=== PATIENT | female | born 1995 | race Caucasian/White ===

== ENCOUNTER 2016-03-27 18:32 | Emergency (ER) | payer OTHER ==
[2016-03-27] MEDS ORDERED: ONDANSETRON ODT 4 MG TABLET TL STA (20:15)
[2016-03-27] MEDS ORDERED: ONDANSETRON ODT 4 MG TABLET ONE (20:22)
== END 2016-03-27 20:59 | disposition home or self-care (01) ==
DX: S06.0X0A Concussion without loss of consciousness, initial encounter (principal); W50.0XXA Accidental hit or strike by another person, initial encounter; Y93.67 Activity, basketball; Y92.39 Other specified sports and athletic area as the place of occurrence of the external cause; Y99.8 Other external cause status; R11.2 Nausea with vomiting, unspecified
CPT/HCPCS: 70450; 99282; 99284; Q0162

== ENCOUNTER 2016-09-28 11:17 | Emergency (ER) | payer OTHER ==
[2016-09-28 14:16] LABS: BILIRUBIN,URINE NEGATIVE (NEGATIVE)
[2016-09-28 14:18] LABS: UA CHARGE (STRIP ONLY) YES; UR CULTURE IF IND NOT INDICATED
[2016-09-28 14:38] LABS: BASOPHILS % (AUTO) 0.4 %; EOSINOPHILS # (AUTO) 0.1 10^3/uL (0.0-0.7); EOSINOPHILS % (AUTO) 0.9 %; HCT - HEMATOCRIT 35.6 % (37.0-47.0); HGB - HEMOGLOBIN 12.4 g/dL (12.0-16.0); LYMPHOCYTES # (AUTO) 2.7 10^3/uL (1.5-3.5); LYMPHOCYTES % (AUTO) 25.2 %; MEAN CORPUSCULAR HEMOGLOBIN 29.9 pg (27.0-31.0); MEAN CORPUSCULAR HGB CONC 34.9 g/dL (32.0-36.0); MEAN CORPUSCULAR VOLUME 85.7 fL (81.0-99.0); MEAN PLATELET VOLUME 6.8 fL (7.9-10.8); MONOCYTES # (AUTO) 0.4 10^3/uL (0.0-1.0); MONOCYTES % (AUTO) 3.9 %; NEUTROPHILS # (AUTO) 7.4 10^3/uL (1.5-6.6); NEUTROPHILS % (AUTO) 69.6 %; RED BLOOD COUNT 4.15 10^6/uL (4.20-5.40); RED CELL DISTRIBUTION WIDTH 13.1 % (12.0-15.0); UNCORRECTED WHITE BLOOD COUNT 10.6 x10^3/uL; WHITE BLOOD COUNT 10.6 x10^3/uL (4.8-10.8)
--- NOTE | 2016-09-28 15:21 | ED Physician Documentation ---
PD HPI FEMALE - Stated complaint Stated Complaint: FEMALE - Chief complaint Chief Complaint: Abd Pain - History obtained from History obtained from: Patient - History of Present Illness Timing - onset: How many minutes ago (30) Timing - details: Now resolved Associated symptoms: Pelvic pain (cramping) Contributing factors: [employer] History: G (1), P (0) Similar symptoms before: Has not had sx before - Additional information Additional information: The patient is a 21-year-old female, currently at 14 weeks gestation, who presents with a brief episode of pelvic cramping that occurred about 30 minutes prior to arrival. She noticed a small dark sac that past, and is concerned that she had a miscarriage. She denies any vaginal bleeding. She denies nausea , vomiting, fever, or dysuria. She has had no recurrent cramping since the episode occurred. Review of Systems Constitutional: denies: Fever Nose: denies: Congestion Throat: denies: Sore throat Respiratory: denies: Dyspnea, Cough GI: reports: Abdominal Pain (Brief pelvic cramping.). denies: Nausea, Vomiting : denies: Dysuria, Vaginal bleeding Skin: denies: Rash Musculoskeletal: denies: Back pain Neurologic: denies: Headache PD PAST MEDICAL HISTORY - Past Medical History Cardiovascular: None Respiratory: None Neuro: None Endocrine/Autoimmune: None Psych: Depression - Past Surgical History Past Surgical History: Yes HEENT: Other - Present Medications Home Medications: Ambulatory Orders Medication Instructions Recorded Confirmed Pnv95/Ferrous Fumarate/FA 1 tab PO DAILY 09/28/16 09/28/16 [ Tablet] - Allergies Allergies/Adverse Reactions: Allergies Allergy/AdvReac Type Severity Reaction Status Date / Time diphenhydramine HCl * Allergy Unknown Verified 03/13/15 14:37 [From Benadryl] - Social History Does the pt smoke?: No Smoking Status: Never smoker Does the pt drink ETOH?: No Does the pt have substance abuse?: No - Immunizations Immunizations are current?: Yes PD ED PE NORMAL - Vitals Vital signs reviewed: Yes (normal) - General General: Alert and oriented X 3, Well developed/nourished - HEENT HEENT: Atraumatic, Pharynx benign - Neck Neck: No adenopathy, No JVD - Cardiac Cardiac: RRR, No murmur - Respiratory Respiratory: No respiratory distress, Clear bilaterally - Abdomen Abdomen: Normal bowel sounds, Soft, Non tender, Other (Gravid uterus.) - Female Female : Nutrition Teacher present - Back Back: No CVA TTP - Derm Derm: No rash - Extremities Extremities: No edema, No calf tenderness / cord - Neuro Neuro: Alert and oriented X 3, No motor deficit, Normal speech PD ED PE EXPANDED - Female Female : Normal external, Enlarged uterus (consistent with dates.), Cultures sent, Nutrition Teacher present. No: Vaginal Bleeding, Dilated cervix, Tissue present Results - Vitals Vitals: Oxygen O2 Source Room air - Labs Labs: Laboratory Tests 09/28/16 09/28/16 09/28/16 14:00 14:00 14:30 WBC 10.6 RBC 4.15 L Hgb 12.4 Hct 35.6 L MCV 85.7 MCH 29.9 MCHC 34.9 RDW 13.1 Plt Count 252 MPV 6.8 L Neut # 7.4 H Lymph # 2.7 [place] # 0.4 Eos # 0.1 Baso # 0.0 Absolute Nucleated RBC 0.00 Nucleated RBCs 0.0 Urine Color YELLOW Urine Clarity CLEAR Urine pH 7.0 Ur Specific [place] 1.010 Urine Protein NEGATIVE Urine Glucose (UA) NEGATIVE Urine Ketones 15 H Urine Occult Blood NEGATIVE Urine Nitrite NEGATIVE Urine Bilirubin NEGATIVE Urine Urobilinogen 0.2 (NORMAL) Ur Leukocyte Esterase NEGATIVE Ur Microscopic Review NOT INDICATED Urine Culture Comments NOT INDICATED C.trachomatis RNA (TMA) NOT DETECTED Chlamydia/GC Comment SEE NOTE N.gonorrhoeae RNA (TMA) NOT DETECTED Procedures - Bedside sono Bedside sono by EMP: Bedside ultrasound performed by az, reveals single viable intrauterine with heart rate of 156. PD MEDICAL DECISION MAKING - ED course Complexity details: reviewed results, considered differential, d/w patient ED course: The patient's presentation is significant for brief transient pelvic cramping during early second trimester . Bedside ultrasound performed by the emergency physician reveals a single viable intrauterine with normal heart rate. There is no vaginal bleeding, and no ongoing pelvic cramping to suggest miscarriage in progress. The patient's blood type is Rh+ by her history. I discussed with her and her female certified nurses aide's the results of her workup, importance of outpatient follow-up with her silk opener, as well as potentially worrisome signs or symptoms that should prompt reevaluation is needed emergency department. Departure - Departure Disposition: 01 Home, Self Care Clinical Impression: Pelvic cramping Qualifiers: Weeks of gestation: 14 weeks Qualified Code(s): Z3A.14 - 14 weeks gestation of Condition: Stable Instructions: ED Pelvic Pain Preg UKO 2 or 3 Tri Follow-Up: KETAN BRANCH [Physician No Access] - Comments: Drink plenty of fluids. You can use Tylenol if needed for discomfort. Follow-up with your silk opener as planned. Return to the emergency department if you develop increasing pelvic cramping pain, vaginal bleeding, or otherwise worsening symptoms. Discharge Date/Time: 09/28/16 15:23
[2016-09-28 15:23] VITALS: BP 117/61
== END 2016-09-28 15:23 | disposition home or self-care (01) ==
LOC: ED 11:17
DX: O26.892 Other specified pregnancy related conditions, second trimester (principal); R10.2 Pelvic and perineal pain; Z3A.14 14 weeks gestation of pregnancy
CPT/HCPCS: 36415; 81001; 81003; 85025; 87086; 87491; 87591; 99283

== ENCOUNTER 2017-08-17 06:33 | Emergency (ER) | payer OTHER ==
[2017-08-17 06:42] VITALS: BP 114/70
[2017-08-17] MEDS ORDERED: DEXAMETHASONE 10 MG/ML VIAL PO STA (07:07)
[2017-08-17] MEDS ORDERED: hydrOXYzine PAMOATE 25 MG CAPSULE PO STA (07:07)
--- NOTE | 2017-08-17 07:10 | ED Physician Documentation ---
PD HPI SKIN - Stated complaint Stated Complaint: ALLERGIC REACTION - Chief complaint Chief Complaint: Wound - History obtained from History obtained from: Patient - History of Present Illness Timing - onset: How many days ago (3) Timing - duration: Days (3) Timing - details: Gradual onset, Still present Location: [place] Quality / character: Itchy, Discolored, Raised Improved by: No: Steroid cream Associated symptoms: No: Fever, Myalgias, Joint pain, Headache, Facial swelling , Dyspnea, Abd pain, N/V/D, Urinary sx Contributing factors: Unknown Similar symptoms before: Diagnosis (non-specific dermatitis) Recently seen: Not recently seen - Additional information Additional information: 22-year-old female who is breast-feeding has developed an acute erythematous rash over her feet and forearms that has spread to her legs and trunk. She has had something similar to this 2 years ago that spontaneously resolved and lasted almost 3 days. She has come to the day #3 and this rash is worse. She is on able to identify a specific trigger for this. She has tried some topical hydrocortisone without improvement. She previously had some improvement with use of hydroxyzine. Review of Systems Constitutional: denies: Fever, Chills, Myalgias Eyes: denies: Decreased vision Ears: denies: Ear pain Nose: reports: Rhinorrhea / runny nose, Congestion Throat: denies: Sore throat Cardiac: denies: Chest pain / pressure Respiratory: denies: Dyspnea, Cough GI: denies: Abdominal Pain, Nausea, Vomiting : denies: Dysuria, Frequency Skin: reports: Rash Musculoskeletal: denies: Neck pain, Back pain, Extremity pain PD PAST MEDICAL HISTORY - Past Medical History Past Medical History: Yes Cardiovascular: None Respiratory: None Endocrine/Autoimmune: None Psych: Depression - Past Surgical History Past Surgical History: Yes HEENT: Tonsil/Adenoidectomy, Other - Present Medications Home Medications: Ambulatory Orders Medication Instructions Recorded Confirmed Pnv95/Ferrous Fumarate/FA 1 tab PO DAILY 09/28/16 09/28/16 [ Tablet] Hydroxyzine Pamoate [Vistaril] 50 mg PO Q6HR PRN #30 capsule 08/17/17 - Allergies Allergies/Adverse Reactions: Allergies Allergy/AdvReac Type Severity Reaction Status Date / Time diphenhydramine HCl * Allergy Unknown Verified 08/17/17 06:42 [From Benadryl] - Social History Does the pt smoke?: No Smoking Status: Never smoker Does the pt drink ETOH?: No Does the pt have substance abuse?: No - Immunizations Immunizations are current?: Yes - POLST Patient has POLST: No PD ED PE NORMAL - Vitals Vital signs reviewed: Yes (normal ) - General General: Alert and oriented X 3, No acute distress, Well developed/nourished, Other (itching continuously ) - HEENT HEENT: Atraumatic, PERRL, EOMI, Ears normal, Moist mucous membranes, Pharynx benign, Dentition benign - Neck Neck: Supple, no meningeal sign, No bony TTP - Cardiac Cardiac: RRR, No murmur - Respiratory Respiratory: No respiratory distress, Clear bilaterally - Abdomen Abdomen: Soft, Non tender - Back Back: No CVA TTP, No spinal TTP - Derm Derm: Normal color, Warm and dry, Other (There is an erythematous plaque like eruption over the feet and hands and forearm and calves and this is less so over the torso. ) - Extremities Extremities: No deformity, No edema - Neuro Neuro: No motor deficit, No sensory deficit Eye Opening: Spontaneous Motor: Obeys Commands Verbal: Oriented GCS Score: 15 - Psych Psych: Normal mood Results - Vitals Vitals: Vital Signs - 24 hr 08/17/17 06:39 Temperature 36 C L Heart Rate 95 Respiratory 16 Rate Blood Pressure 114/70 O2 Saturation 98 Oxygen O2 Source Room air PD MEDICAL DECISION MAKING - ED course Complexity details: reviewed results, re-evaluated patient, considered differential, d/w patient ED course: 22 y/o female with a non-specific rash is administered decadron 10mg PO and vistaril 50mg PO. - Sepsis Event Vital Signs: Vital Signs - 24 hr 08/17/17 06:39 Temperature 36 C L Heart Rate 95 Respiratory 16 Rate Blood Pressure 114/70 O2 Saturation 98 Oxygen O2 Source Room air Departure - Departure Disposition: 01 Home, Self Care Clinical Impression: Rash due to allergy Condition: Stable Instructions: ED Dermatitis Non Specific Rash Follow-Up: Dar Childress ARNP [Primary Care Provider] - Prescriptions: Hydroxyzine Pamoate [Vistaril] 50 mg PO Q6HR PRN #30 capsule PRN Reason: Itching
== END 2017-08-17 07:34 | disposition home or self-care (01) ==
LOC: ED 06:33
DX: T78.40XA Allergy, unspecified, initial encounter (principal); R21 Rash and other nonspecific skin eruption
CPT/HCPCS: 99282; 99283; A9270

== ENCOUNTER 2018-01-01 10:18 | Emergency (ER) | payer OTHER ==
[2018-01-01] MEDS ORDERED: METOCLOPRAMIDE 10 MG/2 ML VIAL IVP STA (10:45)
[2018-01-01] MEDS ORDERED: SODIUM CHLORIDE 0.9% 1,000 ML IV ONE (10:45)
[2018-01-01] MEDS ORDERED: ACETAMINOPHEN 1,000 MG/100 ML 100 ML IV STA (10:45)
--- NOTE | 2018-01-01 12:10 | ED Physician Documentation ---
History of Present Illness - Stated complaint Stated Complaint: MIGRAINE - Chief complaint Chief Complaint: General - History obtained from History obtained from: Patient - Additonal information Additional information: 22-year-old female presents the emergency department for evaluation of a headache for the past 2 days. The patient describes a throbbing throughout her entire head.The patient denies radiation into her neck, neck stiffness, vision changes, motor or sensory changes or any acute focal neurologic changes. The patient also has been feeling generally unwell with body aches, chills and feeling feverish. No reports of nasal congestion, sore throat, abdominal pain, chest pain or dysuria or diarrhea. Symptoms are described as moderate. No improvement with [id number] therapy. No other associated symptoms. Review of Systems Constitutional: reports: Fever, Chills, Myalgias, Fatigue Eyes: denies: Discharge Ears: denies: Ear pain Nose: denies: Rhinorrhea / runny nose, Congestion Throat: denies: Sore throat Cardiac: denies: Chest pain / pressure Respiratory: denies: Dyspnea, Cough GI: reports: Nausea. denies: Vomiting : denies: Dysuria Skin: denies: Rash Musculoskeletal: denies: Neck pain Neurologic: reports: Headache. denies: Confused Immunocompromised: denies: Chemotherapy PD PAST MEDICAL HISTORY - Past Medical History Cardiovascular: None Respiratory: None Endocrine/Autoimmune: None Psych: Depression - Past Surgical History Past Surgical History: Yes HEENT: Tonsil/Adenoidectomy, Other - Present Medications Home Medications: Ambulatory Orders Medication Instructions Recorded Confirmed Pnv95/Ferrous Fumarate/FA 1 tab PO DAILY 09/28/16 01/01/18 [ Tablet] - Allergies Allergies/Adverse Reactions: Allergies Allergy/AdvReac Type Severity Reaction Status Date / Time diphenhydramine HCl * Allergy Unknown Verified 08/17/17 06:42 [From Benadryl] - Social History Does the pt smoke?: No Smoking Status: Never smoker Does the pt drink ETOH?: No Does the pt have substance abuse?: No - Immunizations Immunizations are current?: Yes - POLST Patient has POLST: No PD ED PE NORMAL - General General: Alert and oriented X 3, No acute distress - HEENT HEENT: Atraumatic, PERRL, EOMI, Ears normal, Moist mucous membranes, Pharynx benign - Neck Neck: Supple, no meningeal sign - Cardiac Cardiac: RRR, Strong equal pulses - Respiratory Respiratory: No respiratory distress, Clear bilaterally - Abdomen Abdomen: Soft, Non tender, Non distended - Back Back: No CVA TTP, No spinal TTP - Derm Derm: Normal color - Extremities Extremities: No deformity, No edema - Neuro Neuro: Alert and oriented X 3, tapper shank 2-12 intact, Normal speech - Psych Psych: Normal mood Results - Vitals Vitals: Vital Signs - 24 hr 01/01/18 01/01/18 01/01/18 10:35 13:04 14:19 Temperature 38.6 C H 37.0 C 36.9 C Heart Rate 111 H 95 92 Respiratory 18 16 16 Rate Blood Pressure 96/61 102/65 96/56 L O2 Saturation 100 98 100 Oxygen O2 Source Room air - Labs Labs: Laboratory Tests 01/01/18 01/01/18 01/01/18 11:25 12:20 12:20 Urine Color YELLOW Urine Clarity CLEAR Urine pH 6.0 Ur Specific [place] 1.025 1.025 Urine Protein NEGATIVE Urine Glucose (UA) NEGATIVE Urine Ketones 15 H Urine Occult Blood NEGATIVE Urine Nitrite NEGATIVE Urine Bilirubin NEGATIVE Urine Urobilinogen 0.2 (NORMAL) Ur Leukocyte Esterase NEGATIVE Ur Microscopic Review NOT INDICATED Urine Culture Comments NOT INDICATED Urine HCG, Qual NEGATIVE Influenza A (Rapid) Negative Influenza B (Rapid) Negative - Rads (name of study) CT head Radiology: Final report received, See rad report PD MEDICAL DECISION MAKING - ED course ED course: The patient's symptoms seem to represent a viral process which is most likely causing her headache today. On physical exam there is no findings to suggest bacterial meningitis, sepisis, acute otitis media, peritonsillar abscess, strep pharyngitis, pneumonia or bacterial etiology that would necessitate further workup in the emergency department or antibiotic therapy. On reevaluation the patient is resting comfortably and her symptoms have completely resolved. The patient is requesting discharge home. The patient appears appropriate for outpatient management. I discussed warning signs and recommended returning to the emergency department immediately for any worsening or any concerns. Departure - Departure Disposition: 01 Home, Self Care Clinical Impression: Viral syndrome Headache Qualifiers: Headache type: unspecified Headache chronicity pattern: unspecified pattern Intractability: not intractable Qualified Code(s): R51 - Headache Condition: Good Instructions: ED Cephalgia Unspecified, ED Viral Syndrome Follow-Up: Dar Childress ARNP [Primary Care Provider] - Within 1 week Comments: Please return to the emergency department immediately for worsening symptoms or any concerns
[2018-01-01 12:50] LABS: BILIRUBIN,URINE NEGATIVE (NEGATIVE); GLUCOSE, URINE (UA) NEGATIVE (NEGATIVE); KETONES,URINE (UA) 15 mg/dL (NEGATIVE); LEUKOCYTE ESTERASE, URINE NEGATIVE (NEGATIVE); NITRITE,URINE NEGATIVE (NEGATIVE); OCCULT BLOOD,URINE NEGATIVE (NEGATIVE); PROTEIN,URINE NEGATIVE (NEGATIVE); UROBILINOGEN,URINE 0.2 (NORMAL) E.U./dL (NORMAL)
[2018-01-01 12:53] LABS: CLARITY,URINE CLEAR (CLEAR)
[2018-01-01 12:54] LABS: HCG UR QUAL NEGATIVE
[2018-01-01] MEDS ORDERED: KETOROLAC 60 MG/2 ML VIAL IVP STA (12:58)
--- NOTE | 2018-01-01 14:11 | CT Report ---
Reason: NETTLES Procedure Date: 01/01/2018 Accession Number: [id number] / [id number] Procedure: CT - Head W/O CPT Code: FULL RESULT: EXAM: CT HEAD EXAM DATE: 01/01/2018 11:55 AM. CLINICAL HISTORY: Headache COMPARISON: Head CT 03/27/2016, 08/24/2015. TECHNIQUE: Multiaxial CT images were obtained from the foramen magnum to the vertex. Reformats: Sagittal and coronal. IV contrast: None. In accordance with CT protocol optimization, one or more of the following dose reduction techniques were utilized for this exam: automated exposure control, adjustment of mA and/or KV based on patient size, or use of iterative reconstructive technique. FINDINGS: Parenchyma: No intraparenchymal hemorrhage. No evidence of mass, midline shift, or CT findings of infarction. Pimentel-white differentiation is distinct. Extraaxial Spaces: Normal for age. No subdural or epidural collections identified. Ventricles: Normal in size and position. Sinuses and Orbits: Imaged paranasal sinuses, orbits, and mastoids show no significant abnormality. Bones: No evidence of fracture or calvarial defect. Other: None. IMPRESSION: No acute intracranial process on noncontrast CT RAD[facility]
[2018-01-01 14:21] VITALS: BP 96/56
== END 2018-01-01 14:31 | disposition home or self-care (01) ==
LOC: ED 10:18
DX: B34.9 Viral infection, unspecified (principal); R51 Headache
CPT/HCPCS: 70450; 81003; 81025; 87275; 87276; 96361; 96374; 96375; 99283; 99284; J0131; J2765; 81001; 87086

== ENCOUNTER 2019-04-02 04:02 | Emergency (ER) | payer OTHER ==
--- NOTE | 2019-04-02 04:31 | ED Physician Documentation ---
History of Present Illness - Stated complaint Stated Complaint: VOMITING/DIZZY - Chief complaint Chief Complaint: Abd Pain - History obtained from History obtained from: Patient (the patient is a very pleasant 23 YO USN AD F who p/w a cc of vomiting several times and now feeling lightheaded without dizzyness, denies fevers, syncope, abd pain, dysuria, hematemesis or any other complaints.) Review of Systems Constitutional: reports: Reviewed and negative Eyes: reports: Reviewed and negative Ears: reports: Reviewed and negative Nose: reports: Reviewed and negative Throat: reports: Reviewed and negative Cardiac: reports: Reviewed and negative Respiratory: reports: Reviewed and negative GI: reports: Vomiting : reports: Reviewed and negative Skin: reports: Reviewed and negative Musculoskeletal: reports: Reviewed and negative Neurologic: reports: Reviewed and negative Psychiatric: reports: Reviewed and negative Endocrine: reports: Reviewed and negative Immunocompromised: reports: Reviewed and negative PD PAST MEDICAL HISTORY - Past Medical History Cardiovascular: None Respiratory: None Endocrine/Autoimmune: None Psych: Depression - Past Surgical History Past Surgical History: Yes HEENT: Tonsil/Adenoidectomy, Other - Present Medications Home Medications: Ambulatory Orders Medication Instructions Recorded Confirmed Ondansetron Odt [Zofran] 4 mg TL Q6H PRN #10 tablet 04/02/19 Sertraline HCl 100 mg PO DAILY 04/02/19 04/02/19 - Allergies Allergies/Adverse Reactions: Allergies Allergy/AdvReac Type Severity Reaction Status Date / Time diphenhydramine HCl * Allergy Unknown Verified 04/02/19 04:14 [From Benadryl] - Social History Does the pt smoke?: No Smoking Status: Never smoker Does the pt drink ETOH?: No Does the pt have substance abuse?: No - Immunizations Immunizations are current?: Yes - POLST Patient has POLST: No PD ED PE NORMAL - Vitals Vital signs reviewed: Yes - General General: Alert and oriented X 3, No acute distress, Well developed/nourished - HEENT HEENT: Atraumatic, PERRL, EOMI, Ears normal, Moist mucous membranes - Neck Neck: Supple, no meningeal sign - Cardiac Cardiac: RRR, No murmur, Strong equal pulses - Respiratory Respiratory: No respiratory distress, Clear bilaterally - Abdomen Abdomen: Normal bowel sounds, Soft, Non tender, Non distended, No organomegaly - Derm Derm: Warm and dry - Extremities Extremities: No deformity - Neuro Neuro: Alert and oriented X 3, make up arranger 2-12 intact, No motor deficit, No sensory deficit, Normal speech - Psych Psych: Normal mood, Normal affect Results - Vitals Vitals: Vital Signs - 24 hr 04/02/19 04/02/19 04:05 05:15 Temperature 36.7 C Heart Rate 105 H 87 Respiratory 18 16 Rate Blood Pressure 115/73 100/87 H O2 Saturation 100 100 Oxygen O2 Source Room air - Labs Labs: Laboratory Tests 04/02/19 04/02/19 04/02/19 04:25 04:25 04:30 WBC 10.2 RBC 5.08 Hgb 15.4 Hct 45.4 MCV 89.4 MCH 30.3 MCHC 33.9 RDW 11.7 L Plt Count 260 MPV 9.0 Neut # (Auto) 8.8 H Lymph # (Auto) 0.9 L [place] # (Auto) 0.5 Eos # (Auto) 0.1 Baso # (Auto) 0.0 Absolute Nucleated RBC 0.00 Nucleated RBC % 0.0 Sodium Potassium Chloride Carbon Dioxide Anion Gap BUN Creatinine Estimated GFR (MDRD) Glucose Calcium Total Bilirubin AST ALT Alkaline Phosphatase Total Creatine Kinase Total Protein Albumin Globulin Albumin/Globulin Ratio Lipase Urine Color YELLOW Urine Clarity CLEAR Urine pH 6.5 Ur Specific [place] 1.020 1.020 Urine Protein NEGATIVE Urine Glucose (UA) NEGATIVE Urine Ketones TRACE Urine Occult Blood NEGATIVE Urine Nitrite NEGATIVE Urine Bilirubin NEGATIVE Urine Urobilinogen 0.2 (NORMAL) Ur Leukocyte Esterase SMALL H Urine RBC None Seen Urine WBC 4-5 Ur Squamous Epith Cells MANY Squamous H Urine Bacteria Few Urine Mucus Moderate Strands Ur Microscopic Review INDICATED Urine Culture Comments NOT INDICATED Urine HCG, Qual NEGATIVE 04/02/19 04:30 WBC RBC Hgb Hct MCV MCH MCHC RDW Plt Count MPV Neut # (Auto) Lymph # (Auto) [place] # (Auto) Eos # (Auto) Baso # (Auto) Absolute Nucleated RBC Nucleated RBC % Sodium 135 Potassium 3.7 Chloride 103 Carbon Dioxide 21 Anion Gap 11.0 BUN 14 Creatinine 0.7 Estimated GFR (MDRD) 104 Glucose 99 Calcium 8.7 Total Bilirubin 1.8 H AST 18 ALT 12 Alkaline Phosphatase 55 Total Creatine Kinase 78 Total Protein 7.5 Albumin 4.2 Globulin 3.3 Albumin/Globulin Ratio 1.3 Lipase 37 Urine Color Urine Clarity Urine pH Ur Specific [place] Urine Protein Urine Glucose (UA) Urine Ketones Urine Occult Blood Urine Nitrite Urine Bilirubin Urine Urobilinogen Ur Leukocyte Esterase Urine RBC Urine WBC Ur Squamous Epith Cells Urine Bacteria Urine Mucus Ur Microscopic Review Urine Culture Comments Urine HCG, Qual PD MEDICAL DECISION MAKING - ED course Complexity details: re-evaluated patient (05:23 feels improved, abd soft, tolerated po challenge, non toxic/non septic appearing, f/u w medical today.) Departure - Departure Disposition: Home, Self Care Clinical Impression: Vomiting Qualifiers: Vomiting type: unspecified Vomiting Intractability: unspecified Nausea presen ce: unspecified Qualified Code(s): R11.10 - Vomiting, unspecified Condition: Good Instructions: ED Nausea Vomiting Follow-Up: Dar Childress ARNP [Primary Care Provider] - Tomorrow Prescriptions: Ondansetron Odt [Zofran] 4 mg TL Q6H PRN #10 tablet PRN Reason: Nausea / Vomiting
[2019-04-02 04:32] LABS: GLUCOSE, URINE (UA) NEGATIVE (NEGATIVE); KETONES,URINE (UA) TRACE mg/dL (NEGATIVE); LEUKOCYTE ESTERASE, URINE SMALL (NEGATIVE); NITRITE,URINE NEGATIVE (NEGATIVE); OCCULT BLOOD,URINE NEGATIVE (NEGATIVE); PH,URINE 6.5 PH (5.0-7.5); PROTEIN,URINE NEGATIVE (NEGATIVE); UROBILINOGEN,URINE 0.2 (NORMAL) E.U./dL (NORMAL)
[2019-04-02 04:34] LABS: BILIRUBIN,URINE NEGATIVE (NEGATIVE); CLARITY,URINE CLEAR (CLEAR); ICTOTEST,URINE NEGATIVE
[2019-04-02 04:35] LABS: HCG UR QUAL NEGATIVE
[2019-04-02 04:38] LABS: BACTERIA,URINE Few /HPF (None Seen); RBC,URINE None Seen /HPF (0-5); SQUAMOUS EPITHELIAL CELL,UR MANY Squamous (<= Few)
[2019-04-02 04:39] LABS: MUCUS,URINE Moderate Strands
[2019-04-02] MEDS ORDERED: ONDANSETRON 4 MG/2 ML VIAL IVP STA (04:47)
[2019-04-02] MEDS ORDERED: SODIUM CHLORIDE 0.9% 1,000 ML IV ONE (04:47)
[2019-04-02 04:59] LABS: BASOPHILS % (AUTO) 0.3 %; EOSINOPHILS # (AUTO) 0.1 10^3/uL (0.0-0.7); EOSINOPHILS % (AUTO) 0.5 %; HGB - HEMOGLOBIN 15.4 g/dL (12.0-16.0); LYMPHOCYTES # (AUTO) 0.9 10^3/uL (1.5-3.5); LYMPHOCYTES % (AUTO) 8.4 %; MEAN CORPUSCULAR HEMOGLOBIN 30.3 pg (27.0-31.0); MEAN CORPUSCULAR HGB CONC 33.9 g/dL (32.0-36.0); MEAN CORPUSCULAR VOLUME 89.4 fL (81.0-99.0); MONOCYTES # (AUTO) 0.5 10^3/uL (0.0-1.0); MONOCYTES % (AUTO) 4.5 %; NEUTROPHILS # (AUTO) 8.8 10^3/uL (1.5-6.6); NEUTROPHILS % (AUTO) 86.1 %; PLT - PLATELET COUNT 260 10^3/uL (130-450); RED BLOOD COUNT 5.08 10^6/uL (4.20-5.40); RED CELL DISTRIBUTION WIDTH 11.7 % (12.0-15.0); WHITE BLOOD COUNT 10.2 x10^3/uL (4.8-10.8)
[2019-04-02 05:07] LABS: ALBUMIN 4.2 g/dL (3.2-5.5); ALBUMIN/GLOBULIN RATIO 1.3 (1.0-2.2); BILIRUBIN,TOTAL 1.8 mg/dL (0.2-1.0); CALCIUM 8.7 mg/dL (8.5-10.3); CREATININE 0.7 mg/dL (0.4-1.0); TOTAL PROTEIN 7.5 g/dL (6.7-8.2)
[2019-04-02 05:40] VITALS: BP 110/68
== END 2019-04-02 05:40 | disposition home or self-care (01) ==
LOC: ED 04:02
DX: R11.10 Vomiting, unspecified (principal)
CPT/HCPCS: 36415; 80053; 81001; 81003; 81025; 82550; 83690; 85025; 87086; 96361; 96374; 99283

== ENCOUNTER 2019-08-21 16:10 | Emergency (ER) | payer OTHER ==
--- NOTE | 2019-08-21 16:38 | ED Physician Documentation ---
History of Present Illness - Stated complaint Stated Complaint: HIT HEAD, EYES SHAKING - Chief complaint Chief Complaint: Trauma Hd/Nk - History obtained from History obtained from: Patient - History of Present Illness Timing: Prior to arrival, How many hours ago Pain level max: 1 - Additonal information Additional information: 24-year-old female presents to the emergency department with chief complaint of a headache after she hit her head on 1 of the jets at work this afternoon. She had no loss of consciousness she is not on any anticoagulants. Patient reports that shortly after hitting her head she developed a headache and her coworker said that her eyelids were shaking. However she did not have any unilateral clonic jerking or evidence of seizure activity. Patient reports multiple episodes in the past where she has hit her head while wakeboarding or playing softball with loss of consciousness.She has no nasal drainage or ear drainage. No raccoon or botello sign. Review of Systems Constitutional: denies: Fever, Chills Eyes: denies: Loss of vision, Decreased vision Ears: denies: Loss of hearing, Ear pain, Drainage/discharge Nose: denies: Rhinorrhea / runny nose Cardiac: denies: Chest pain / pressure, Palpitations Respiratory: denies: Dyspnea, Cough GI: denies: Abdominal Pain, Abdominal Swelling : denies: Dysuria Skin: denies: Rash Neurologic: reports: Headache, Head injury. denies: Generalized weakness, Focal weakness, Numbness, Difficulty speaking, Near syncope, Syncope, Seizure, Confused, Altered mental status, LOC PD PAST MEDICAL HISTORY - Past Medical History Past Medical History: Yes Cardiovascular: None Respiratory: None Endocrine/Autoimmune: None Psych: Depression - Past Surgical History Past Surgical History: Yes HEENT: Tonsil/Adenoidectomy, Other - Present Medications Home Medications: Ambulatory Orders Medication Instructions Recorded Confirmed Ondansetron Odt [Zofran] 4 mg TL Q6H PRN #10 tablet 04/02/19 Sertraline HCl 100 mg PO DAILY 04/02/19 04/02/19 - Allergies Allergies/Adverse Reactions: Allergies Allergy/AdvReac Type Severity Reaction Status Date / Time diphenhydramine HCl * Allergy Unknown Verified 04/02/19 04:14 [From Benadryl] - Social History Does the pt smoke?: No Smoking Status: Never smoker Does the pt drink ETOH?: No Does the pt have substance abuse?: No - Immunizations Immunizations are current?: Yes - POLST Patient has POLST: No PD ED PE NORMAL - General General: Alert and oriented X 3, No acute distress, Well developed/nourished - HEENT HEENT: Atraumatic, PERRL, EOMI, Other (Mild erythema on top of occiput without crepitus or ecchymosis) - Neck Neck: Supple, no meningeal sign, No bony TTP, No adenopathy - Cardiac Cardiac: RRR, No murmur - Respiratory Respiratory: No respiratory distress - Neuro Neuro: Alert and oriented X 3, 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, No motor deficit, No sensory deficit, Normal speech, Other (Normal [id number], normal tandem gait, normal heel-to-toe gait.) Eye Opening: Spontaneous Motor: Obeys Commands Verbal: Oriented GCS Score: 15 - Psych Psych: Normal mood Results - Vitals Vitals: Vital Signs - 24 hr 08/21/19 16:16 Temperature 36.8 C Heart Rate 70 Respiratory 16 Rate Blood Pressure 99/70 O2 Saturation 99 Oxygen O2 Source Room air PD MEDICAL DECISION MAKING - ED course Complexity details: reviewed results, re-evaluated patient, d/w patient ED course: 24-year-old female presents to the emergency department with a headache after striking her head on a jet while at work today. She had no loss of consciousness no evidence of seizure activity. - Her neurological exam is preserved no cerebellar or cranial nerve deficits n oted. She also has no evidence of raccoons or botello sign. She does not meet the CT [place] CT head imaging criteria.Mild headache suggestive of minor concussion. Discussed to follow-up with base physician. Recommend judicious fluids, rest at night and avoidance TV, computer or cell phone - Departure - Departure Disposition: Home, Self Care Clinical Impression: Headache Qualifiers: Headache type: post-traumatic Headache chronicity pattern: acute headache Intractability: not intractable Qualified Code(s): G44.319 - Acute post- traumatic headache, not intractable Concussion Qualifiers: Encounter type: initial encounter Loss of consciousness presence/duration: without LOC Qualified Code(s): S06.0X0A - Concussion without loss of consciousness, initial encounter Condition: Stable Instructions: ED Concussion Comments: Henny the headache after striking her head is common. I suspect to have a mild concussion. I would drink judicious fluids, take ibuprofen or Tylenol for headache. Rest at night is the most advised medium to help concussion improve. Return here if you have a suddenly severe or sudden headache, if you have 2 or more episodes of uncontrolled vomiting or if you notice that your arms or legs are weak.
[2019-08-21 17:12] VITALS: BP 101/82
== END 2019-08-21 17:13 | disposition home or self-care (01) ==
LOC: ED 16:10
DX: S06.0X0A Concussion without loss of consciousness, initial encounter (principal); G44.319 Acute post-traumatic headache, not intractable; W22.09XA Striking against other stationary object, initial encounter; Y99.0 Civilian activity done for income or pay
CPT/HCPCS: 99281; 99282

== ENCOUNTER 2019-12-03 08:10 | Emergency (ER) | payer OTHER ==
[2019-12-03 08:19] VITALS: BP 110/70
--- NOTE | 2019-12-03 08:56 | ED Physician Documentation ---
History of Present Illness - Stated complaint Stated Complaint: SI - Chief complaint Chief Complaint: MHE - History obtained from History obtained from: Patient - Additonal information Additional information: Patient comes emergency department complaining of feeling depressed as the anniversary of her mother's comes near and as her mother's birthday comes near. Patient states that her mother was diagnosed with late stage cancer and lived for 2 months on palliative/hospice care before dying last December. Patient states that she has struggled with depression for about 5 years on and off, but that it has been somewhat worse since her mom . She states that over the last Couple of weeks, she has been experiencing recurrent, intrusive, unwanted thoughts of feeling that it would be better if she were . Patient states that she does not want the thoughts and does not want to act on them. She has a 2-1/2-year-old daughter who is a protective factor and she wants to be with her child. She states she is in the [facility] and has been seen In their mental health system from time to time. She has been tried on many different medications, but states that they were not helpful and they just had unpleasant side effects. She has also tried counseling which does not really seem to help. Patient states that recently, she has not been doing anything for her mental health because she is just given up, Due to nothing ever seeming to help. Patient denies any substance abuse. She states she drinks alcohol occasionally socially. She denies any other medical problems. Her only other medication is an as needed antibiotic because of a predisposition for UTIs after intercourse. No other complaints at this time. Review of Systems Ten Systems: 10 systems reviewed and negative Constitutional: reports: Reviewed and negative Eyes: reports: Reviewed and negative Ears: reports: Reviewed and negative Nose: reports: Reviewed and negative Throat: reports: Reviewed and negative Cardiac: reports: Reviewed and negative Respiratory: reports: Reviewed and negative GI: reports: Reviewed and negative : reports: Reviewed and negative Skin: reports: Reviewed and negative Musculoskeletal: reports: Reviewed and negative Neurologic: reports: Reviewed and negative Psychiatric: reports: Depressed, Suicidal, Insomnia Endocrine: reports: Reviewed and negative Immunocompromised: reports: Reviewed and negative PD PAST MEDICAL HISTORY - Past Medical History Cardiovascular: None Respiratory: None Endocrine/Autoimmune: None Psych: Depression - Past Surgical History Past Surgical History: Yes HEENT: Tonsil/Adenoidectomy, Other - Present Medications Home Medications: Ambulatory Orders Medication Instructions Recorded Confirmed Ondansetron Odt [Zofran] 4 mg TL Q6H PRN #10 tablet 04/02/19 Sertraline HCl 100 mg PO DAILY 04/02/19 04/02/19 - Allergies Allergies/Adverse Reactions: Allergies Allergy/AdvReac Type Severity Reaction Status Date / Time diphenhydramine HCl * Allergy Unknown Verified 12/03/19 08:14 [From Benadryl] - Social History Does the pt smoke?: No Smoking Status: Never smoker Does the pt drink ETOH?: No Does the pt have substance abuse?: No - Immunizations Immunizations are current?: Yes - POLST Patient has POLST: No PD ED PE NORMAL - Vitals Vital signs reviewed: Yes - General General: Alert and oriented X 3, No acute distress - HEENT HEENT: Atraumatic, PERRL, EOMI, Moist mucous membranes - Neck Neck: Supple, no meningeal sign - Cardiac Cardiac: RRR, No murmur - Respiratory Respiratory: No respiratory distress, Clear bilaterally - Abdomen Abdomen: Soft, Non tender, Non distended - Derm Derm: Normal color, Warm and dry, No rash - Extremities Extremities: No deformity, No edema, No calf tenderness / cord - Neuro Neuro: Alert and oriented X 3, Other (Grossly normal) - Psych Psych: Normal mood, Normal affect Results - Vitals Vitals: Vital Signs - 24 hr 12/03/19 11:39 Temperature 36.8 C Heart Rate 76 Respiratory 18 Rate O2 Saturation 99 Oxygen O2 Source Room air - Labs Labs: Laboratory Tests 12/03/19 12/03/19 12/03/19 08:49 08:49 08:49 WBC 5.6 RBC 4.70 Hgb 14.2 Hct 41.7 MCV 88.7 MCH 30.2 MCHC 34.1 RDW 11.5 L Plt Count 268 MPV 8.8 Neut # (Auto) 2.6 Lymph # (Auto) 2.6 [place] # (Auto) 0.4 Eos # (Auto) 0.1 Baso # (Auto) 0.0 Absolute Nucleated RBC 0.00 Nucleated RBC % 0.0 Sodium 138 Potassium 3.7 Chloride 103 Carbon Dioxide 26 Anion Gap 9.0 BUN 12 Creatinine 0.7 Estimated GFR (MDRD) 103 Glucose 96 Calcium 8.9 Total Bilirubin 1.8 H AST 15 ALT 12 Alkaline Phosphatase 56 Total Protein 7.6 Albumin 4.4 Globulin 3.2 Albumin/Globulin Ratio 1.4 Lipase 38 TSH 2.47 Ur Specific [place] Urine HCG, Qual Urine Opiates Screen Ur Oxycodone Screen Urine Methadone Screen Ur Propoxyphene Screen Ur Barbiturates Screen Ur Tricyclics Screen Ur Phencyclidine Scrn Ur Amphetamine Screen U Methamphetamines Scrn U Benzodiazepines Scrn Urine Cocaine Screen U Cannabinoids Screen Ethyl Alcohol < 5.0 12/03/19 09:46 WBC RBC Hgb Hct MCV MCH MCHC RDW Plt Count MPV Neut # (Auto) Lymph # (Auto) [place] # (Auto) Eos # (Auto) Baso # (Auto) Absolute Nucleated RBC Nucleated RBC % Sodium Potassium Chloride Carbon Dioxide Anion Gap BUN Creatinine Estimated GFR (MDRD) Glucose Calcium Total Bilirubin AST ALT Alkaline Phosphatase Total Protein Albumin Globulin Albumin/Globulin Ratio Lipase TSH Ur Specific [place] 1.020 Urine HCG, Qual NEGATIVE Urine Opiates Screen NEGATIVE Ur Oxycodone Screen NEGATIVE Urine Methadone Screen NEGATIVE Ur Propoxyphene Screen NEGATIVE Ur Barbiturates Screen NEGATIVE Ur Tricyclics Screen NEGATIVE Ur Phencyclidine Scrn NEGATIVE Ur Amphetamine Screen NEGATIVE U Methamphetamines Scrn NEGATIVE U Benzodiazepines Scrn NEGATIVE Urine Cocaine Screen NEGATIVE U Cannabinoids Screen NEGATIVE Ethyl Alcohol PD MEDICAL DECISION MAKING - ED course Complexity details: reviewed results, re-evaluated patient, considered differential, d/w patient ED course: Patient was worked up with medical clearance labs and social work was consulted. She said the patient did seem to have some significant protective factors, and was voluntary. fruit worker did speak with pt at length, and it was determined that the pt could undergo outpatient treatment. She has been given resources, as well as the usual indications for return. Departure - Departure Disposition: 01 Home, Self Care Clinical Impression: Anxiety Depression Qualifiers: Depression Type: major depressive disorder Major depression recurrence: recurrent Active/Remission status: currently active Major depression episode severity: moderate Qualified Code(s): F33.1 - Major depressive disorder, recurrent, moderate Condition: Stable Instructions: ED Depression Comments: Please follow-up as arranged between you and the addiction social worker. If you begin to feel suicidal again, please call the crisis hotline immediately or return to the emergency department. Forms: Activity restrictions Discharge Date/Time: 12/03/19 11:39
[2019-12-03 08:58] LABS: BASOPHILS % (AUTO) 0.5 %; EOSINOPHILS # (AUTO) 0.1 10^3/uL (0.0-0.7); EOSINOPHILS % (AUTO) 1.8 %; HGB - HEMOGLOBIN 14.2 g/dL (12.0-16.0); LYMPHOCYTES # (AUTO) 2.6 10^3/uL (1.5-3.5); LYMPHOCYTES % (AUTO) 45.5 %; MEAN CORPUSCULAR HEMOGLOBIN 30.2 pg (27.0-31.0); MEAN CORPUSCULAR HGB CONC 34.1 g/dL (32.0-36.0); MEAN CORPUSCULAR VOLUME 88.7 fL (81.0-99.0); MEAN PLATELET VOLUME 8.8 fL (7.9-10.8); MONOCYTES # (AUTO) 0.4 10^3/uL (0.0-1.0); MONOCYTES % (AUTO) 6.4 %; NEUTROPHILS # (AUTO) 2.6 10^3/uL (1.5-6.6); NEUTROPHILS % (AUTO) 45.6 %; PLT - PLATELET COUNT 268 10^3/uL (130-450); RED CELL DISTRIBUTION WIDTH 11.5 % (12.0-15.0); WHITE BLOOD COUNT 5.6 x10^3/uL (4.8-10.8)
[2019-12-03 09:12] LABS: ALBUMIN 4.4 g/dL (3.2-5.5); ALBUMIN/GLOBULIN RATIO 1.4 (1.0-2.2); ALKALINE PHOSPHATASE 56 IU/L (42-121); ALT ALANINE AMINOTRANSFERASE 12 IU/L (10-60); AST ASPARTATE AMINOTRANSFERASE 15 IU/L (10-42); BILIRUBIN,TOTAL 1.8 mg/dL (0.2-1.0); BUN - BLOOD UREA NITROGEN 12 mg/dL (6-20); CALCIUM 8.9 mg/dL (8.5-10.3); CARBON DIOXIDE - CO2 26 mmol/L (21-32); CHLORIDE 103 mmol/L (101-111); CREATININE 0.7 mg/dL (0.4-1.0); GLUCOSE 96 mg/dL (70-100); LIPASE 38 U/L (22-51); SODIUM 138 mmol/L (135-145); TOTAL PROTEIN 7.6 g/dL (6.7-8.2)
[2019-12-03 09:50] LABS: MUDS CUTOFF CONCENTRATIONS CUTOFF CONC BELOW:
[2019-12-03 09:58] LABS: HCG UR QUAL NEGATIVE
[2019-12-03 10:05] LABS: AMPHETAMINE SCREEN,URINE NEGATIVE (NEGATIVE); BENZODIAZEPINES SCREEN, URINE NEGATIVE (NEGATIVE); COCAINE SCREEN URINE NEGATIVE (NEGATIVE); METHADONE SCREEN, URINE NEGATIVE (NEGATIVE); METHAMPHETAMINES SCREEN, URINE NEGATIVE (NEGATIVE); OPIATE SCREEN, URINE NEGATIVE (NEGATIVE); OXYCODONE SCREEN, URINE NEGATIVE (NEGATIVE); PROPOXYPHENE SCREEN, URINE NEGATIVE (NEGATIVE); TRICYCLIC ANTIDEPRESSANT,URINE NEGATIVE (NEGATIVE)
== END 2019-12-03 11:39 | disposition home or self-care (01) ==
LOC: ED 08:10
DX: F41.9 Anxiety disorder, unspecified (principal); F32.9 Major depressive disorder, single episode, unspecified
CPT/HCPCS: 36415; 80053; 80306; 80320; 81025; 83690; 84443; 85025; 99283; 99284